=== PATIENT | female | born 1995 | race Caucasian/White ===

== ENCOUNTER → 2018-12-12 21:40 | Observation (INO) ==
[2018-12-12 18:53] VITALS: BP 119/63
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
[2018-12-12 20:00] LABS: Activated Partial Thrombo Time 26.3 Seconds (26.0-36.0)
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
== END | disposition home or self-care (01) ==
LOC: 1NENULAB
PROVIDERS: ADMIT Advanced Practice Midwife; ATTEND Advanced Practice Midwife